=== PATIENT | female | born 1960 ===

== ENCOUNTER 2017-10-29 16:46 | Emergency (ER) | payer OTHER ==
[2017-10-29 16:57] VITALS: RESP 16; TEMP 98.1; O2SAT 98
[2017-10-29 18:15] LABS: BASO # 0.1 K/uL (0.0-0.2); BASO % 0.9 % (0.0-2.0); EOS # 0.1 K/uL (0.0-0.7); EOS % 1.8 % (0.0-4.0); HEMOGLOBIN 11.3 g/dL (12.0-16.0); LYMPH # 3.1 K/uL (1.0-4.3); LYMPH % 40.8 % (20.0-40.0); MEAN CELL VOLUME 83.6 fl (81.0-99.0); MEAN CORPUSCULAR HEMOGLOBIN 28.7 pg (27.0-31.0); MEAN CORPUSCULAR HGB CONC 34.4 g/dL (33.0-37.0); MEAN PLATELET VOLUME 8.4 fl (7.2-11.7); MONO # 0.5 K/uL (0.0-0.8); MONO % 6.5 % (0.0-10.0); NEUT # 3.8 K/uL (1.8-7.0); RBC 3.94 Mil/uL (3.80-5.20); RED CELL DISTRIBUTION WIDTH 13.9 % (11.5-14.5); WHITE BLOOD COUNT 7.7 K/uL (4.8-10.8)
[2017-10-29 18:25] LABS: ALB/GLOB RATIO 1.2 (1.0-2.1); ALBUMIN 3.8 g/dL (3.5-5.0); ALT/SGPT 27 U/L (9-52); AST/SGOT 24 U/L (14-36); BLOOD UREA NITROGEN 17 mg/dl (7-17); GFR AFRICAN-AMERICAN > 60; GFR NON-AFRICAN AMERICAN > 60
--- NOTE | 2017-10-29 18:34 | ED PDOC ---
HPI: General Adult Time Seen by Provider: 10/29/17 17:02 Chief Complaint (Nursing): Finger,Hand,&Wrist Chief Complaint (Provider): Finger, Hand, and Wrist History Per: Patient History/Exam Limitations: no limitations Onset/Duration Of Symptoms: Days (x2) Current Symptoms Are (Timing): Still Present Additional Complaint(s): 57 year old female presented to ED with complaints of bruising on the right 2nd MCP. Patient reports taking baby aspirin every day and denies taking other anticoagulants. Patient denies numbness, trauma, fever, injury, headache, neck pain, skin bite and decreased ROM. PCP: Dr. Matty Woodson Past Medical History Reviewed: Historical Data, Nursing Documentation, Vital Signs Vital Signs: Last Vital Signs Temp 98.1 F 10/29/17 16:54 Pulse 67 10/29/17 19:04 Resp 16 10/29/17 16:54 BP 135/76 10/29/17 19:04 Pulse Ox 98 10/29/17 18:50 - Medical History PMH: Asthma, HTN Denies: Chronic Kidney Disease - Surgical History Surgical History: No Surg Hx - Family History Family History: States: Unknown Family Hx - Home Medications Home Medications: Ambulatory Orders Medication Instructions Recorded Losartan [Cozaar] 1 tab PO DAILY 12/07/14 Aspirin [Ecotrin] 81 mg PO DAILY 10/22/16 - Allergies Allergies/Adverse Reactions: Allergies Allergy/AdvReac Type Severity Reaction Status Date / Time No Known Allergies Allergy Verified 10/29/17 16:54 Review of Systems ROS Statement: Except As Marked, All Systems Reviewed And Found Negative Constitutional: Negative for: Fever, Other (Trauma or other injury) Musculoskeletal: Negative for: Neck Pain Skin: Positive for: Bruising (Dorsal right 2nd MCP extending to 2nd proximal phalanx) Neurological: Negative for: Numbness, Headache Physical Exam - Reviewed Nursing Documentation Reviewed: Yes Vital Signs Reviewed: Yes - Physical Exam Comments: GENERAL APPEARANCE: Patient is awake, alert, oriented x 3, in no acute distress. SKIN: Warm, dry; (-) cyanosis. NECK: (-) tenderness, (-) stiffness, (-) lymphadenopathy, (-) JVD. CHEST AND RESPIRATORY: (-) rash, (-) chest wall tenderness. Lungs: (-) rales , (-) rhonchi, (-) wheezes, (-) rub; breath sounds equal bilaterally. HEART AND CARDIOVASCULAR: (-) irregularity; (-) murmur, (-) gallop, (-) rub. ABDOMEN AND GI: Soft; (-) distention, (-) tenderness, (-) palpable pulsatile mass. EXTREMITIES - RIGHT HAND: (-) Tenderness, (-) swelling, (+) ecchymosis of dorsal right 2nd MCP extending to right 2nd proximal phalanx, (-) deformity, (- ) tenderness, (-) edema, (-) distal neurovascular deficit. NEURO AND PSYCH: Mental status as above. Cranial nerves grossly intact; strength symmetric. - Laboratory Results Result Diagrams: 10/29/17 18:08 10/29/17 18:08 - ECG O2 Sat by Pulse Oximetry: 98 (RA) Pulse Ox Interpretation: Normal Medical Decision Making Medical Decision Makin:02 Initial Plan: * CMP * CBC (with differentials) * PTT * Prothrombin time Labs reviewed and are wnl, hgb, platelets, coags wnl. Lab results discussed with the patient in detail. Advised to ice and elevate her right hand and to monitor her symptoms. Advised to follow up with primary care physician in 1-2 days without fail. Return to the emergency room at any time for any new or worsening symptoms. Patient states she fully agrees with and understands discharge instructions. States that she agrees with the plan and disposition. Verbalized and repeated discharge instructions and plan. I have given the patient opportunity to ask any additional questions. Scribe Attestation: Documented by Chuy Woodard acting as a scribe for Susan Laboy PA-C MD Scribe Attestation: All medical record entries made by the Scribe were at my direction and personally dictated by me. I have reviewed the chart and agree that the record accurately reflects my personal performance of the history, physical exam, medical decision making, and the department course for this patient. I have also personally directed, reviewed, and agree with the discharge instructions and disposition. Disposition - Clinical Impression Clinical Impression: Ecchymosis - Patient ED Disposition Is Patient to be Admitted: No Counseled Patient/Family Regarding: Studies Performed, Diagnosis, Need For Followup - Disposition Referrals: Elsa Hoover MD [Medical Doctor] - Disposition: Routine/Home Disposition Time: 19:00 Condition: STABLE Additional Instructions: Thank you for letting us take care of you today. You were treated for ecchymosis to the hand. The emergency medical care you received today was directed at your acute symptoms. Ice and elevate the hand. Return to the Emergency Department if your symptoms worsen, do not improve, or if you have any other problems. Please contact your doctor in 2 days for re-evaluation and follow up / or call one of the physicians/clinics you have been referred to that are listed on the Patient Visit Information form that is included in your discharge packet. Bring any paperwork you were given at discharge with you along with any medications you are taking to your follow up visit. Our treatment cannot replace ongoing medical care by a primary care provider (PCP) outside of the emergency department. Thank you for allowing the [facility] team to be part of your care today. Instructions: Contusion (DC) Forms: [employer] (Estonian) Print Language: BURMESE - PA / CELL TOWER CLIMBER / Resident Statement / has reviewed & agrees with the documentation as recorded.
[2017-10-29 18:38] LABS: INR 1.1 (0.9-1.2); PARTIAL THROMBOPLASTIN TIME 34.6 Seconds (25.6-37.1); PROTHROMBIN TIME 11.9 Seconds (9.8-13.1)
[2017-10-29 19:04] VITALS: BP 135/76; PULSE 67
== END 2017-10-29 17:15 | disposition home or self-care (01) ==
LOC: H.ER 16:46
DX: R23.3 Spontaneous ecchymoses (principal); I10 Essential (primary) hypertension; J45.909 Unspecified asthma, uncomplicated; Z79.82 Long term (current) use of aspirin

== ENCOUNTER 2017-11-29 14:33 | Emergency (ER) | payer OTHER ==
[2017-11-29 14:45] VITALS: RESP 18; TEMP 98.3; O2SAT 98
--- NOTE | 2017-11-29 14:58 | ED PDOC ---
HPI: Wound Care - HPI Time Seen by Provider: 11/29/17 14:56 Chief Complaint (Nursing): Abnormal Skin Integrity Chief Complaint (Provider): lump to axilla History Per: Patient Exam Limitations: no limitations Onset/Duration Of Symptoms: Days (1 week) Current Symptoms Are (Timing): Still Present Additional Complaint(s): 57 y/o female with a history of HTN presents to the ED with an abscess to the right axillary region. Patient states she noticed it 1 week prior to ED arrival. She denies taking any pain medications, fever, or active drainage. Of note, NKDA. PMD: Dr. Matty Woodson Past Medical History Reviewed: Historical Data, Nursing Documentation, Vital Signs Vital Signs: Last Vital Signs Temp 98.3 F 11/29/17 14:43 Pulse 72 11/29/17 14:43 Resp 18 11/29/17 14:43 BP 165/83 H 11/29/17 14:43 Pulse Ox 98 11/29/17 14:43 - Medical History PMH: HTN - Surgical History Other surgeries: tubal ligation - Family History Family History: States: No Known Family Hx - Living Arrangements Living Arrangements: With Family - Social History Current smoker - smoking cessation education provided: No Ex-Smoker (has not smoked in the last 12 months): No Alcohol: None Drugs: Denies - Home Medications Home Medications: Ambulatory Orders Medication Instructions Recorded Losartan [Cozaar] 1 tab PO DAILY 12/07/14 Aspirin [Ecotrin] 81 mg PO DAILY 10/22/16 Amoxicillin/Clavulanate [Augmentin 1 tab PO BID #14 tab 11/29/17 875 MG-125 MG] Clindamycin [Cleocin] 300 mg PO TID #21 cap 11/29/17 Ibuprofen [Motrin Tab] 800 mg PO Q8 PRN #20 tab 11/29/17 - Allergies Allergies/Adverse Reactions: Allergies Allergy/AdvReac Type Severity Reaction Status Date / Time No Known Allergies Allergy Verified 11/29/17 14:42 Review of Systems ROS Statement: Except As Marked, All Systems Reviewed And Found Negative Constitutional: Negative for: Fever Skin: Positive for: Other (abscess to right axillary region, denies active drainage) Physical Exam - Reviewed Nursing Documentation Reviewed: Yes Vital Signs Reviewed: Yes - Physical Exam Appears: Positive for: Non-toxic, No Acute Distress Head Exam: Positive for: ATRAUMATIC, NORMAL INSPECTION, NORMOCEPHALIC Skin: Negative for: Normal Color (2 cm indurated abscess noted to right axillary region with no active drainage and no fluctuance, minimal tenderness to palpation, no central pointing, No diffuse cellulitis to axillary region), Rash Eye Exam: Positive for: Normal appearance Neurologic/Psych: Positive for: Alert, Oriented (x3) - ECG O2 Sat by Pulse Oximetry: 98 (RA) Pulse Ox Interpretation: Normal Medical Decision Making Medical Decision Making: Time: 14:43 Impression: 57 y/o female with right axillary abscess Initial Plan: * PO motrin dose in ED Indurated abscess noted to right axillary region with no fluctuance or central pointing. Incision and drainage not indicated at this time. Patient will be sent home with rx Augmentin, Clindamycin, and Motrin. Instructed to apply warm compress with epsom salts. Patient instructed to return in 2 days for wound check. Scribe Attestation: Documented by Dany Rogel acting as a scribe Bela Velasquez PA-C. MD Scribe Attestation: All medical record entries made by the Scribe were at my direction and personally dictated by me. I have reviewed the chart and agree that the record accurately reflects my personal performance of the history, physical exam, medical decision making, and the department course for this patient. I have also personally directed, reviewed, and agree with the discharge instructions and disposition. Disposition - Clinical Impression Clinical Impression: Abscess of right axilla - Patient ED Disposition Is Patient to be Admitted: No Counseled Patient/Family Regarding: Diagnosis, Need For Followup, Rx Given - Disposition Referrals: Matty Woodson MD [Staff Provider] - Disposition: Routine/Home Disposition Time: 15:51 Condition: STABLE Additional Instructions: Apply warm compresses with Epsom salts to affected area as often as possible. Take prescription meds as directed. Return to emergency room in 2-3 days for wound recheck. Prescriptions: Amoxicillin/Clavulanate [Augmentin 875 MG-125 MG] 1 tab PO BID #14 tab Clindamycin [Cleocin] 300 mg PO TID #21 cap Ibuprofen [Motrin Tab] 800 mg PO Q8 PRN #20 tab PRN Reason: Pain, Moderate (4-7) Instructions: Skin Abscess Forms: [facility] (Icelandic) Print Language: THAI
[2017-11-29 15:52] VITALS: BP 143/83; PULSE 98
== END 2017-11-29 15:55 | disposition home or self-care (01) ==
LOC: H.ER 14:33
DX: L02.411 Cutaneous abscess of right axilla (principal); I10 Essential (primary) hypertension; Z79.82 Long term (current) use of aspirin; Z87.891 Personal history of nicotine dependence

== ENCOUNTER 2017-12-03 15:22 | Emergency (ER) | payer OTHER ==
--- NOTE | 2017-12-03 16:03 | ED PDOC ---
HPI: Wound Care - HPI Time Seen by Provider: 12/03/17 15:52 Chief Complaint (Nursing): Abnormal Skin Integrity Chief Complaint (Provider): Abscess History Per: Patient Exam Limitations: no limitations Additional Complaint(s): 57 year old female presents to the emergency department for a wound check on an abscess located to the right axilla noted around 1 week ago. Patient was seen in this facility on 11/29/2017, diagnosed with a skin abscess, given a prescription for Augmentin 875 mg-125 mg and told to apply warm compresses with Epsom salts to affected area as often as possible and advised to come back to the emergency department 2-3 days for wound recheck. Patient states wound has not changed. Denies fever or chills. PMD: Dr. Matty Woodson MD Past Medical History Reviewed: Historical Data, Nursing Documentation, Vital Signs Vital Signs: Last Vital Signs Temp 98.2 F 12/03/17 15:37 Pulse 67 12/03/17 15:37 Resp 16 12/03/17 15:37 BP 156/73 H 12/03/17 15:37 Pulse Ox 100 12/03/17 15:37 - Medical History PMH: Asthma, HTN Denies: Chronic Kidney Disease - Surgical History Surgical History: No Surg Hx - Family History Family History: States: Unknown Family Hx - Social History Current smoker - smoking cessation education provided: No Alcohol: None Drugs: Denies - Immunization History Hx Tetanus Toxoid Vaccination: No - Home Medications Home Medications: Ambulatory Orders Medication Instructions Recorded Losartan [Cozaar] 1 tab PO DAILY 12/07/14 Aspirin [Ecotrin] 81 mg PO DAILY 10/22/16 Amoxicillin/Clavulanate [Augmentin 1 tab PO BID #14 tab 11/29/17 875 MG-125 MG] Clindamycin [Cleocin] 300 mg PO TID #21 cap 11/29/17 Ibuprofen [Motrin Tab] 800 mg PO Q8 PRN #20 tab 11/29/17 - Allergies Allergies/Adverse Reactions: Allergies Allergy/AdvReac Type Severity Reaction Status Date / Time No Known Allergies Allergy Verified 11/29/17 14:42 Review of Systems ROS Statement: Except As Marked, All Systems Reviewed And Found Negative (As per HPI, otherwise negative) Constitutional: Negative for: Fever, Chills Skin: Positive for: Other (Abscess noted to the right axilla. ) Physical Exam - Reviewed Nursing Documentation Reviewed: Yes - Physical Exam Appears: Positive for: Well, No Acute Distress Head Exam: Positive for: ATRAUMATIC, NORMAL INSPECTION, NORMOCEPHALIC Skin: Positive for: Normal Color, Warm, Dry Eye Exam: Positive for: Normal appearance, EOMI Respiratory: Negative for: Accessory Muscle Use, Respiratory Distress Extremity: Positive for: Normal ROM, Other (3 cm abscess that is fluctuant without surrounding erythema. No drainage noted. ). Negative for: Pedal Edema Neurologic/Psych: Positive for: Alert, Oriented (x3), Gait (Steady) - ECG O2 Sat by Pulse Oximetry: 100 (RA) Pulse Ox Interpretation: Normal Medical Decision Making Medical Decision Making: Time: 1557 Initial impression: Wound check Initial plan: Xylocaine 2% w/ epi 3 ml IJ Incision & Drainage --I&D can be found in procedure tab within chart. Time: 1645 --Patient advised to apply warm heating pad until she removes packing gauze and to then continue apply warm compresses. Scribe Attestation: Documented by Preeti Victoria, acting as a scribe for Maria Elena Simon PA-C. Provider Scribe Attestation: All medical record entries made by the Scribe were at my direction and personally dictated by me. I have reviewed the chart and agree that the record accurately reflects my personal performance of the history, physical exam, medical decision making, and the department course for this patient. I have also personally directed, reviewed, and agree with the discharge instructions and disposition. Disposition - Clinical Impression Clinical Impression: Sebaceous cyst - Disposition Disposition: Routine/Home Disposition Time: 16:59 Condition: STABLE Instructions: Abscess Incision and Drainage (DC) Forms: [facility] [employer] (Greenlandic) Print Language: URDU - Incision & Drainage Of Abscess Anesthesia: Lidocaine 1%, With Epi Prep Used: Sterile Water Procedure: Incised W/Scalpel Blade#: (11), Drained Pus (1 cc of thick white drainage), Packed W/Gauze
[2017-12-03] MEDS ORDERED: Lidocaine 1% Inj (20ml) ONE (16:18)
[2017-12-03] MEDS: Lidocaine 2% w Epi 1:100,000 Inj IJ STA (16:20)
[2017-12-03] MEDS ORDERED: Lidocaine 1% w Epi 1:100,000 Inj ONE (16:20)
[2017-12-03 17:00] VITALS: BP 142/81; PULSE 70; RESP 18; TEMP 98
[2017-12-09 13:31] VITALS: O2SAT 100
== END 2017-12-03 17:01 | disposition home or self-care (01) ==
LOC: H.ER 15:22
DX: L02.411 Cutaneous abscess of right axilla (principal); I10 Essential (primary) hypertension; J45.909 Unspecified asthma, uncomplicated; Z79.82 Long term (current) use of aspirin

== ENCOUNTER 2018-01-10 09:51 | Emergency (ER) | payer OTHER ==
[2018-01-10] MEDS ORDERED: Sodium Chloride 0.9% 1,000 ML IV STA (10:44)
--- NOTE | 2018-01-10 10:52 | ED PDOC ---
HPI: General Adult Time Seen by Provider: 01/10/18 10:33 Chief Complaint (Provider): Dizziness History Per: Patient History/Exam Limitations: no limitations Onset/Duration Of Symptoms: Days (x1) Current Symptoms Are (Timing): Still Present Additional Complaint(s): 57 year old male with history of HTN presents to the ED with dizziness onset last night associated nausea. Patient feels like "room is spinning" and states that vertigo is worse with head movement. He denies vomiting, headache, chest pain, palpitations, LOC, fall, other injuries, or any other medical complaints. PMD: Dr. Matty Woodson Past Medical History Reviewed: Historical Data, Nursing Documentation, Vital Signs Vital Signs: Last Vital Signs Temp 98.3 F 01/10/18 10:11 Pulse 63 01/10/18 10:11 Resp 20 01/10/18 10:11 BP 152/80 H 01/10/18 10:11 Pulse Ox 100 01/10/18 10:54 - Medical History PMH: Asthma, HTN Denies: Chronic Kidney Disease - Family History Family History: States: Unknown Family Hx - Immunization History Hx Tetanus Toxoid Vaccination: No - Home Medications Home Medications: Ambulatory Orders Medication Instructions Recorded Losartan [Cozaar] 1 tab PO DAILY 12/07/14 Aspirin [Ecotrin] 81 mg PO DAILY 10/22/16 Amoxicillin/Clavulanate [Augmentin 1 tab PO BID #14 tab 11/29/17 875 MG-125 MG] Clindamycin [Cleocin] 300 mg PO TID #21 cap 11/29/17 Ibuprofen [Motrin Tab] 800 mg PO Q8 PRN #20 tab 11/29/17 Meclizine [Meclizine*] 25 mg PO Q8 #15 tab 01/10/18 - Allergies Allergies/Adverse Reactions: Allergies Allergy/AdvReac Type Severity Reaction Status Date / Time No Known Allergies Allergy Verified 01/10/18 11:26 Review of Systems ROS Statement: Except As Marked, All Systems Reviewed And Found Negative Gastrointestinal: Positive for: Nausea Neurological: Positive for: Dizziness Physical Exam - Reviewed Nursing Documentation Reviewed: Yes Vital Signs Reviewed: Yes - Physical Exam Appears: Positive for: Non-toxic, No Acute Distress Head Exam: Positive for: NORMOCEPHALIC Skin: Positive for: Normal Color, Warm, Dry Eye Exam: Positive for: EOMI, Normal appearance, PERRL Neck: Positive for: Normal, Painless ROM, Supple Cardiovascular/Chest: Positive for: Regular Rate, Rhythm. Negative for: Murmur Respiratory: Positive for: Normal Breath Sounds. Negative for: Respiratory Distress Gastrointestinal/Abdominal: Positive for: Normal Exam, Soft. Negative for: Tenderness Extremity: Positive for: Normal ROM (upper and lower). Negative for: Deformity Neurologic/Psych: Positive for: Alert, Oriented (x3). Negative for: Motor/ Sensory Deficits - Laboratory Results Result Diagrams: 01/10/18 11:57 01/10/18 11:57 - ECG O2 Sat by Pulse Oximetry: 100 (RA) Medical Decision Making Medical Decision Making: Time: 10:48 Initial Plan: --EKG --CMP --CBC with differentials --Antivert 25 mg PO --NS Scribe Attestation: Documented by Norma Woodard, acting as a scribe for Charly Pa MD Provider Scribe Attestation: All medical record entries made by the Scribe were at my direction and personally dictated by me. I have reviewed the chart and agree that the record accurately reflects my personal performance of the history, physical exam, medical decision making, and the department course for this patient. I have also personally directed, reviewed, and agree with the discharge instructions and disposition. Disposition - Clinical Impression Clinical Impression: Vertigo - Patient ED Disposition Is Patient to be Admitted: No Counseled Patient/Family Regarding: Studies Performed, Diagnosis, Need For Followup, Rx Given - Disposition Referrals: [facility] [Outside] Disposition: Routine/Home Disposition Time: 13:14 Condition: FAIR Prescriptions: Meclizine [Meclizine*] 25 mg PO Q8 #15 tab Instructions: Vertigo (a Type of Dizziness) Print Language: SAO TOMEAN
[2018-01-10 12:03] LABS: BASO % 0.3 % (0.0-2.0); LYMPH # 1.1 K/uL (1.0-4.3); LYMPH % 13.3 % (20.0-40.0); MEAN CELL VOLUME 82.5 fl (81.0-99.0); MEAN CORPUSCULAR HEMOGLOBIN 28.8 pg (27.0-31.0); MEAN CORPUSCULAR HGB CONC 34.9 g/dL (33.0-37.0); MEAN PLATELET VOLUME 8.7 fl (7.2-11.7); MONO # 0.2 K/uL (0.0-0.8); MONO % 2.4 % (0.0-10.0); NEUT # 6.8 K/uL (1.8-7.0); NRBC % 0.1 % (0.0-0.0); RBC 4.52 Mil/uL (3.80-5.20); RED CELL DISTRIBUTION WIDTH 14.3 % (11.5-14.5)
[2018-01-10 12:20] LABS: ALB/GLOB RATIO 1.3 (1.0-2.1); ALBUMIN 4.8 g/dL (3.5-5.0); ALT/SGPT 26 U/L (9-52); AST/SGOT 33 U/L (14-36); BLOOD UREA NITROGEN 14 mg/dl (7-17); CALCIUM 9.8 mg/dL (8.4-10.2); GFR AFRICAN-AMERICAN > 60; GFR NON-AFRICAN AMERICAN > 60
[2018-01-10 13:48] VITALS: BP 128/78; PULSE 78; RESP 19; TEMP 97; O2SAT 98
--- NOTE | 2018-01-10 20:50 | CARD ---
APPROVED REPORT EKG Measurement Heart [id number] <Conclusion> Normal sinus rhythm Left ventricular hypertrophy Non-specific ST-T wave changes Abnormal ECG
== END 2018-01-10 13:48 | disposition home or self-care (01) ==
LOC: H.ER 09:51
DX: R42 Dizziness and giddiness (principal); I10 Essential (primary) hypertension; J45.909 Unspecified asthma, uncomplicated; Z79.82 Long term (current) use of aspirin
CPT/HCPCS: 80053; 85025; 93005; 99284; J7030

== ENCOUNTER 2018-02-07 15:31 | Emergency (ER) | payer SELFPAY ==
[2018-02-07 15:43] VITALS: RESP 18; TEMP 98.3
[2018-02-07] MEDS ORDERED: Lidocaine 5% Patch TD STA (15:54)
--- NOTE | 2018-02-07 16:09 | ED PDOC ---
HPI: General Adult Time Seen by Provider: 02/07/18 15:45 Chief Complaint (Nursing): Back Pain Chief Complaint (Provider): Hip Pain History Per: Patient, Tie Man ([id number]) History/Exam Limitations: no limitations Onset/Duration Of Symptoms: Days (x5) Current Symptoms Are (Timing): Still Present Additional Complaint(s): 57 year old female with a history of htn and asthma presents to the ED with atraumatic, nonradiating left hip pain onset 5 days. Patient reports pain is worse with ambulation. She denies dysuria, hematuria, trauma, numbness, tingling , weakness or any other medical complaints. PMD: Dr. Woodson Past Medical History Reviewed: Historical Data, Nursing Documentation, Vital Signs Vital Signs: Last Vital Signs Temp 98.3 F 02/07/18 15:41 Pulse 73 02/07/18 15:41 Resp 18 02/07/18 15:41 BP 153/93 H 02/07/18 15:41 Pulse Ox 100 02/07/18 17:08 - Medical History PMH: Asthma, HTN Denies: Chronic Kidney Disease - Surgical History Surgical History: No Surg Hx - Family History Family History: States: Unknown Family Hx - Immunization History Hx Tetanus Toxoid Vaccination: No - Home Medications Home Medications: Ambulatory Orders Medication Instructions Recorded Losartan [Cozaar] 1 tab PO DAILY 12/07/14 Aspirin [Ecotrin] 81 mg PO DAILY 10/22/16 Amoxicillin/Clavulanate [Augmentin 1 tab PO BID #14 tab 11/29/17 875 MG-125 MG] Clindamycin [Cleocin] 300 mg PO TID #21 cap 11/29/17 Ibuprofen [Motrin Tab] 800 mg PO Q8 PRN #20 tab 11/29/17 Meclizine [Meclizine*] 25 mg PO Q8 #15 tab 01/10/18 Cyclobenzaprine [Cyclobenzaprine 10 mg PO Q8 PRN #10 tab 02/07/18 HCl] Naproxen [Naprosyn] 500 mg PO BID PRN #30 tab 02/07/18 - Allergies Allergies/Adverse Reactions: Allergies Allergy/AdvReac Type Severity Reaction Status Date / Time No Known Allergies Allergy Verified 02/07/18 15:41 Review of Systems ROS Statement: Except As Marked, All Systems Reviewed And Found Negative Musculoskeletal: Positive for: Other (left hip pain ) Physical Exam - Reviewed Nursing Documentation Reviewed: Yes Vital Signs Reviewed: Yes - Physical Exam Appears: Positive for: In Acute Distress (miniml painful) Skin: Positive for: Normal Color, Warm. Negative for: Rash Eye Exam: Positive for: EOMI, Normal appearance, PERRL Cardiovascular/Chest: Positive for: Regular Rate, Rhythm. Negative for: Murmur Respiratory: Positive for: Normal Breath Sounds. Negative for: Accessory Muscle Use, Respiratory Distress Gastrointestinal/Abdominal: Negative for: Tenderness Pelvic Exam: Positive for: Other (no pelvic tenderness) Back: Positive for: Other (Left paralumbar and left lateral hip tenderness). Negative for: L CVA Tenderness, R CVA Tenderness, Vertebral Tenderness Neurologic/Psych: Positive for: Alert, Oriented (x3) - ECG O2 Sat by Pulse Oximetry: 100 (RA) Pulse Ox Interpretation: Normal Medical Decision Making Medical Decision Making: Time: 15:54 Initial Plan: --Flexeril 10 mg --Lidoderm 1 ea --Toradol 30 mg IM --Hip XR --Urinalysis Time: 16:12 Hip XR FINDINGS: BONES: Normal. No fracture. JOINTS: Mild and symmetrical degenerative change. SOFT TISSUES: Normal. OTHER FINDINGS: None. IMPRESSION: No acute findings related to/accounting for the clinical presentation. Scribe Attestation: Documented by Norma Woodard, acting as a scribe for Santos Maradiaga PA-C. ~ Provider Scribe Attestation: All medical record entries made by the Scribe were at my direction and personally dictated by me. I have reviewed the chart and agree that the record accurately reflects my personal performance of the history, physical exam, medical decision making, and the department course for this patient. I have also personally directed, reviewed, and agree with the discharge instructions and disposition. Disposition - Clinical Impression Clinical Impression: Hip pain - Patient ED Disposition Is Patient to be Admitted: No - Disposition Referrals: [facility] [Outside] Disposition: Routine/Home Disposition Time: 17:10 Condition: IMPROVED Additional Instructions: JOSÉ MIGUEL GUTIERREZ, thank you for letting us take care of you today. Your provider was Tyrell Lundberg III, DO and you were treated for BACK PAIN. The emergency medical care you received today was directed at your acute symptoms. If you were prescribed any medication, please fill it and take as directed. It may take several days for your symptoms to resolve. Return to the Emergency Department if your symptoms worsen, do not improve, or if you have any other problems. Please contact your doctor or call one of the physicians/clinics you have been referred to that are listed on the Patient Visit Information form that is included in your discharge packet. Bring any paperwork you were given at discharge with you along with any medications you are taking to your follow up visit. Our treatment cannot replace ongoing medical care by a primary care provider outside of the emergency department. Thank you for allowing the [facility] team to be part of your care today. If you had an X-Ray or CT scan: A Radiologist will review the ED reading if any change in treatment is needed we will contact you. If you had a blood, urine, or wound culture: It will take several days for the results, if any change in treatment is needed we will contact you. If you had an STI test: It will take 48 hours for the results. Please call after 1 week if you have not heard back. Prescriptions: Cyclobenzaprine [Cyclobenzaprine HCl] 10 mg PO Q8 PRN #10 tab PRN Reason: Muscle Spasm Naproxen [Naprosyn] 500 mg PO BID PRN #30 tab PRN Reason: Pain Instructions: Hip Pain (DC) Forms: [employer] (Kenyan) Print Language: GAMBIAN
[2018-02-07] MEDS ORDERED: Lidocaine 5% Patch TD ONE (16:18)
--- NOTE | 2018-02-07 16:28 | RAD ---
PROCEDURE: Left Hip X-ray Radiographs. HISTORY: Pain. No history of recent/ related trauma provided COMPARISON: None. FINDINGS: BONES: Normal. No fracture. JOINTS: Mild and symmetrical degenerative change. SOFT TISSUES: Normal. OTHER FINDINGS: None. IMPRESSION: No acute findings related to/accounting for the clinical presentation.
[2018-02-07 17:01] LABS: SQUAMOUS EPITHIAL 1 /hpf (0-5); URINE BILIRUBIN NEGATIVE (NEGATIVE); URINE BLOOD NEGATIVE (NEGATIVE); URINE CLARITY SLIGHTY-CLOUDY (Clear); URINE COLOR YELLOW (YELLOW); URINE GLUCOSE (UA) NEG (Normal); URINE LEUKOCYTE ESTERASE NEG Leu/uL (Negative); URINE PROTEIN NEGATIVE (NEGATIVE); URINE UROBILINOGEN 0.2-1.0 mg/dL (0.2-1.0)
[2018-02-07 18:29] VITALS: BP 140/78; PULSE 70; O2SAT 99
== END 2018-02-07 18:29 | disposition home or self-care (01) ==
LOC: H.ER 15:31
DX: M25.552 Pain in left hip (principal); I10 Essential (primary) hypertension
CPT/HCPCS: 73502; 81003; 96372; 99283; J1885

== ENCOUNTER 2018-05-02 16:24 | Emergency (ER) | payer SELFPAY ==
[2018-05-02] MEDS ORDERED: Naproxen 500 MG TAB PO STA (18:17)
--- NOTE | 2018-05-02 18:24 | ED PDOC ---
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 Patient reports, 2 weeks ago, she injured her right 5th toe after stubbing it on an object which became swollen and bruised. Symptoms resolved shortly afterwards, however, the toe became swollen and painful again since yesterday. Patient took Tylenol last night for symptoms, but none today; patient notes she never was evaluated at the initial time of the injury. Denies ankle pain or calf pain. Patient indicates that approximately 10 years ago patient had a "callus" removed via surgery from both of the 5th toes. PMD: Matty Frias Past Medical History Reviewed: Historical Data, Nursing Documentation, Vital Signs Vital Signs: Last Vital Signs Temp 98.5 F 05/02/18 16:36 Pulse 72 05/02/18 16:36 Resp 19 05/02/18 16:36 BP 148/87 05/02/18 16:36 Pulse Ox 98 05/02/18 16:36 - Medical History PMH: Asthma, HTN - Surgical History Other surgeries: Callus removal from both 5th toes - Family History Family History: States: Unknown Family Hx - Home Medications Home Medications: Ambulatory Orders Medication Instructions Recorded RX: Losartan [Cozaar] 1 tab PO DAILY 12/07/14 Aspirin [Ecotrin] 81 mg PO DAILY 10/22/16 Amoxicillin/Clavulanate [Augmentin 1 tab PO BID #14 tab 11/29/17 875 MG-125 MG] Ibuprofen [Motrin Tab] 800 mg PO Q8 PRN #20 tab 11/29/17 RX: Clindamycin [Cleocin] 300 mg PO TID #21 cap 11/29/17 RX: Meclizine [Meclizine*] 25 mg PO Q8 #15 tab 01/10/18 Cyclobenzaprine [Cyclobenzaprine 10 mg PO Q8 PRN #10 tab 02/07/18 HCl] RX: Naproxen [Naprosyn] 500 mg PO BID PRN #30 tab 02/07/18 Acetaminophen [Acetaminophen 8 650 mg PO Q8 PRN #21 tablet.er 05/02/18 Hour] Meloxicam [Mobic] 15 mg PO DAILY #10 tab 05/02/18 - Allergies Allergies/Adverse Reactions: Allergies Allergy/AdvReac Type Severity Reaction Status Date / Time No Known Allergies Allergy Verified 02/07/18 15:41 Review of Systems ROS Statement: Except As Marked, All Systems Reviewed And Found Negative Musculoskeletal: Positive for: Other (Left 5th toe pain and swelling) Physical Exam - Reviewed Nursing Documentation Reviewed: Yes Vital Signs Reviewed: Yes - Physical Exam Comments: GENERAL APPEARANCE: Patient is awake, alert, oriented x 3, in no acute distress. Resting comfortably. SKIN: Warm, dry; (-) cyanosis. NECK: Supple, FROM LOWER EXTREMITY: Diffuse tenderness of the left fifth toe and mild edema dorsum to the left 5th toe. Remainder of toes nontender with full ROM. Sensation and capillary refill intact. (-) ecchymosis, (-) erythema, (-) warmth, (-) calf tenderness. Remainder of lower extremity nontender with FROM. CHEST AND RESPIRATORY: (-)wheezing (-) rales, (-) rhonchi; breath sounds equal bilaterally. Respirations even and nonlabored. HEART AND CARDIOVASCULAR: (-) irregularity EXTREMITIES: (-) deformity, (-) edema. NEURO AND PSYCH: Mental status as above; (-) focal findings. Limping in the ED. (-) facial asymmetry (-) aphasia - ECG O2 Sat by Pulse Oximetry: 98 (RA) Pulse Ox Interpretation: Normal Medical Decision Making Medical Decision Making: Initial Impression: Acute toe pain; contusion vs fracture Initial Plan: --Naproxen 500mg PO --Right foot X-ray --Consult to podiatry placed. 1840 Case discussed with podiatry resident, Dr Lowe, who is agreeable to evaluation at bedside. 1854 Podiatry at bedside. Foot XR: (-) fracture (-) dislocation 1950 Surgical shoe applied by podiatry. Patient supplied with crutches and instructed on crutch walking. RICE encouraged. Patient to follow up with podiatry clinic in two weeks with Dr Caro. On exam, patient remains AAOx3, in no acute distress. Lungs clear to auscultation, cardiac RRR, repeat neuro exam shows no focal findings. Vitals stable. Lab/Diagnostic results d/w the patient in great detail. Diagnosis of acute toe pain and swelling d/w the patient. Based on history, exam and diagnostic results, plan will be for outpatient follow up with podiatry. Patient instructed to follow-up with pmd / referral provided / the clinic in 1- 2 days without fail. Advised to take medication as prescribed. Return to the emergency room at any time for any new or worsening symptoms. Patient states she fully agrees with and understands discharge instructions. States that she agrees with the plan and disposition. Verbalized and repeated discharge instructions and plan. I have given the patient opportunity to ask any additional questions. Scribe Attestation: Documented by Chuy Woodard acting as a scribe for Flaquita LUZ Provider Scribe Attestation: All medical record entries made by the Scribe were at my direction and personally dictated by me. I have reviewed the chart and agree that the record accurately reflects my personal performance of the history, physical exam, medical decision making, and the department course for this patient. I have also personally directed, reviewed, and agree with the discharge instructions and disposition. Disposition - Clinical Impression Clinical Impression: Toe pain, Toe swelling - Patient ED Disposition Is Patient to be Admitted: No Counseled Patient/Family Regarding: Studies Performed, Diagnosis, Need For Followup, Rx Given - Disposition Referrals: Podiatry Clinic [Outside] Disposition: Routine/Home Disposition Time: 19:50 Condition: IMPROVED Additional Instructions: Meena un seguimiento con la clnica de podologa en [address] Venancio rodríguez. La atencin mdica de emergencia que recibi hoy se dirigi a lucía sntomas agudos. Si le recetaron algn medicamento, llnelo y tmelo segn las indicaciones. Los sntomas pueden tardar varios west en resolverse. Regrese al Departamento de Emergencias si lucía sntomas empeoran, no mejoran o si tiene otros problemas. Comunquese con renteria mdico dentro de 2 west para nicko nueva evaluacin y meena un seguimiento o llame a sarmad de los mdicos / clnicas a los que avelar sido referido y que figuran en el formulario de Informacin de visita al paciente que se incluye en renteria paquete de mark. Lleve con usted a renteria consulta de seguimiento toda la documentacin que recibi del mark junto con los medicamentos que est tomando. Nuestro tratamiento no puede reemplazar la atencin mdica continua por parte de un proveedor de atencin primaria (PCP) fuera del departamento de emergencias. Prescriptions: Acetaminophen [Acetaminophen 8 Hour] 650 mg PO Q8 PRN #21 tablet.er PRN Reason: Pain, Moderate (4-7) Meloxicam [Mobic] 15 mg PO DAILY #10 tab Instructions: Muscle and Bone Pain (DC), Toe Injury Forms: [facility] (Djiboutian) Print Language: MACEDONIAN - POA Present On Arrival: None
[2018-05-02] MEDS ORDERED: Naproxen 500 MG TAB PO ONE (18:39)
--- NOTE | 2018-05-02 18:47 | RAD ---
Date of service: 05/02/2018 PROCEDURE: Right Foot Radiographs. HISTORY: 5th toe injury COMPARISON: None. FINDINGS: BONES: No definite fracture. JOINTS: Normal. SOFT TISSUES: Soft tissue swelling. OTHER FINDINGS: None. IMPRESSION: No definite fracture or dislocation.
--- NOTE | 2018-05-02 19:26 | CP.PCM.CON ---
History of Present Illness - History of Present Illness History of Present Illness: 57 y/o female patient was seen and evaluated in the ED due to complaints of pain to her Right 5th digit. Patient has PMHx of HTN. Patient states she stubbed her 5th digit 2 weeks ago. Patient reports it was bruised and swollen at the time. Patient states she applied ice to the area and took Tylenol for pain relief. Patient reports she has been ambulating on the right foot, and states pain is worse when ambulating. Patient denies any bleeding or drainage from the right 5th digit. Patient's pain is 8/10 on the VAS. Patient denies any fever, nausea, vomiting, shortness of breath, chest pain or posterior calf pain Review of Systems - Review of Systems All systems: reviewed and no additional remarkable complaints except Review of Systems: As per HPI Past Patient History - Past Medical History & Family History Past Medical History?: Yes - Past Social History Smoking Status: Never Smoked - CARDIAC Hx Hypertension: Yes - PULMONARY Hx Asthma: Yes - NEUROLOGICAL Hx Neurological Disorder: No - HEENT Hx HEENT Problems: No - RENAL Hx Chronic Kidney Disease: No - ENDOCRINE/METABOLIC Hx Endocrine Disorders: No - HEMATOLOGICAL/ONCOLOGICAL Hx Blood Disorders: No - INTEGUMENTARY Hx Dermatological Problems: No - MUSCULOSKELETAL/RHEUMATOLOGICAL Hx Musculoskeletal Disorders: No - GASTROINTESTINAL Hx Gastrointestinal Disorders: No - GENITOURINARY/GYNECOLOGICAL Hx Genitourinary Disorders: No - PSYCHIATRIC Hx Psychophysiologic Disorder: No Hx Emotional Abuse: No Hx Physical Abuse: No Hx Substance Use: No - SURGICAL HISTORY Hx Surgeries: Yes Hx Tubal Ligation: Yes Other/Comment: OVARIAN CYSTECTOMY - ANESTHESIA Hx Anesthesia: Yes Hx Anesthesia Reactions: No Hx Malignant Hyperthermia: No Meds Allergies/Adverse Reactions: Allergies Allergy/AdvReac Type Severity Reaction Status Date / Time No Known Allergies Allergy Verified 02/07/18 15:41 Physical Exam - Constitutional Appears: Well, Non-toxic, No Acute Distress - Head Exam Head Exam: ATRAUMATIC, NORMOCEPHALIC - Extremities Exam Extremities exam: Positive for: full ROM, tenderness. Negative for: pedal edema Additional comments: Bilateral Lower Extremity Exam VASC: DP and PT 2/4 bilaterally, CFT less than 3 seconds X 10, TG within normal limits, no pedal edema appreciated NEURO: epicritic and protective sensation intact DERM: minimal erythema to the right 5th digit, no open lesions, no ecchymosis, no clinical signs of infection ORTHO: pain on palpation to the right 5th digit, pain with range of motion of the right 5th MTPJ, pain submet 5, MSK 5/5, all other ranges of motion within normal limits - Neurological Exam Neurological exam: Alert, Oriented x3 - Psychiatric Exam Psychiatric exam: Normal Affect, Normal Mood Results - Vital Signs Recent Vital Signs: Last Vital Signs Temp 98.5 F 05/02/18 16:36 Pulse 72 05/02/18 16:36 Resp 19 05/02/18 16:36 BP 148/87 05/02/18 16:36 Pulse Ox 98 05/02/18 18:57 Assessment & Plan - Assessment and Plan (Free Text) Assessment: 57 y/o female seen and evaluated for pain to the right 5th digit Plan: Patient seen and evaluated at bedside Plan discussed with attending Dr. Caro Right Foot X-ray: soft tissue swelling at the 5th, no acute fracture or dislocation noted of the 5th digit Patient 5th digit splinted against the 4th digit via [place], CFT checked to less than 3 seconds Patient provided with a surgical shoe and advised to stay NWB or to partial bear weight to the right heel Instructed patient on proper crutch use Patient demonstrated verbal understanding Patient to return to ER if pain worsens and educated on clinical signs of infection Patient to follow up in Podiatry Clinic in 2 weeks on Wednesday Thank you for the podiatry consult - Date & Time Date: 05/02/18 Time: 19:32
[2018-05-02 19:58] VITALS: BP 139/80; PULSE 87; RESP 15; TEMP 98.1
[2018-05-02 20:00] VITALS: O2SAT 98
== END 2018-05-02 19:58 | disposition home or self-care (01) ==
LOC: H.ER 16:24
DX: M79.674 Pain in right toe(s) (principal); I10 Essential (primary) hypertension; J45.909 Unspecified asthma, uncomplicated; Z79.82 Long term (current) use of aspirin; Z98.51 Tubal ligation status

== ENCOUNTER 2018-09-27 14:57 | Observation (INO) | payer SELFPAY ==
--- NOTE | 2018-09-27 15:33 | CT ---
Date of service: 09/27/2018 PROCEDURE: CT HEAD WITHOUT CONTRAST. HISTORY: code stroke COMPARISON: 01/22/2018 TECHNIQUE: Axial computed tomography images were obtained through the head/brain without intravenous contrast. Radiation dose: Total exam DLP = 1145.1 mGy-cm. This CT exam was performed using one or more of the following dose reduction techniques: Automated exposure control, adjustment of the mA and/or kV according to patient size, and/or use of iterative reconstruction technique. FINDINGS: HEMORRHAGE: No intracranial hemorrhage. BRAIN: No mass effect or edema. No atrophy or chronic microvascular ischemic changes. VENTRICLES: Unremarkable. No hydrocephalus. CALVARIUM: Unremarkable. PARANASAL SINUSES: Unremarkable as visualized. No significant inflammatory changes. MASTOID AIR CELLS: Unremarkable as visualized. No inflammatory changes. OTHER FINDINGS: None. IMPRESSION: No intracranial hemorrhage. No evidence of acute infarct. No interval change. The findings in this examination were discussed by telephone with Dr. Lundberg at 3:29 p.m. on 09/27/2018.
[2018-09-27 15:46] LABS: INR 1.1; PROTHROMBIN TIME 12.1 Seconds (9.8-13.1)
[2018-09-27 15:49] LABS: PARTIAL THROMBOPLASTIN TIME 33.9 Seconds (25.6-37.1)
--- NOTE | 2018-09-27 15:49 | RAD ---
Date of service: 09/27/2018 HISTORY: Code Stroke COMPARISON: 12/07/2014 TECHNIQUE: 1 view obtained. FINDINGS: LUNGS: No active pulmonary disease. PLEURA: No significant pleural effusion identified, no pneumothorax apparent. CARDIOVASCULAR: No aortic atherosclerotic calcification present. Normal cardiac size. No pulmonary vascular congestion. OSSEOUS STRUCTURES: No significant abnormalities. VISUALIZED UPPER ABDOMEN: Normal. OTHER FINDINGS: None. IMPRESSION: No active disease.
[2018-09-27 15:52] LABS: BASO # 0.1 K/uL (0.0-0.2); BASO % 0.7 % (0.0-2.0); EOS # 0.1 K/uL (0.0-0.7); EOS % 1.3 % (0.0-4.0); HEMOGLOBIN 12.5 g/dL (12.0-16.0); LYMPH # 3.8 K/uL (1.0-4.3); LYMPH % 51.5 % (20.0-40.0); MEAN CELL VOLUME 82.1 fl (81.0-99.0); MEAN CORPUSCULAR HEMOGLOBIN 28.1 pg (27.0-31.0); MEAN CORPUSCULAR HGB CONC 34.2 g/dL (33.0-37.0); MEAN PLATELET VOLUME 9.1 fl (7.2-11.7); MONO # 0.9 K/uL (0.0-0.8); MONO % 12.6 % (0.0-10.0); NEUT # 2.5 K/uL (1.8-7.0); NEUT % 33.9 % (50.0-75.0); NRBC % 0.3 % (0.0-0.0); RBC 4.44 Mil/uL (3.80-5.20); RED CELL DISTRIBUTION WIDTH 14.3 % (11.5-14.5); WHITE BLOOD COUNT 7.4 K/uL (4.8-10.8)
--- NOTE | 2018-09-27 16:07 | ED PDOC ---
HPI:STROKE - Time Time: 15:14 - Historian Historian: Patient - Chief Complaint Chief Complaint: Weakness - Onset Onset: Hours (18) - Context Context: Home - Location Locate left: Upper extremity - TPA Positive for Contraindication: Yes Reason tPA is not being Administered: symptoms ongoing >4 hours, NIHSS <4 - Notes: Notes:: 58yo female with history of hypertension, asthma, comes to ER reporting left sided numbness and slight weakness since 9pm last night. She reports she woke up this morning with persistent weakness and numbness, prompting the ER visit. Patient denies any associated fall, syncope, vision changes, headache, or speech changes. PMD: Dr. Woodson NIHSS Stroke Scale - Date/Time Evaluation Performed Date Performed: 09/27/18 Time Performed: 15:20 When Was NIHSS Performed: Code Stroke - How Severe is the Stroke Level of Consciousness: 0=Alert LOC to Questions: 0=Both comments correct LOC to commands: 0=Obeys both correctly Best Gaze: 0=Normal Visual: 0=No visual loss Facial: 0=Normal Motor Arm - Left: 1=Drift noted before 10 sec Motor Arm - Right: 0=No drift Motor Leg - Left: 0=No drift Motor Leg - Right: 0=No drift Limb Ataxia: 0=Absent Sensory: 1=Mild to moderate loss Best Language: 0=No aphasia Dysarthia: 0=Normal articulation Extinction & Inattention (Neglect): 0=Normal, no object Score: 2 rTPA Inclusion/Exclusion - Refusal of Treatment Patient Refused Treatment: Yes - Inclusion Criteria for Altepase All of the below criteria for inclusion were reviewed: Yes Patient is 18 years or Older: Yes The Clinical Diagnosis of Ischemic Stroke That is Causing a Potentially Disabling Neurological Deficit: Yes Time of Onset is Well Established to be Less Than 270 Minute Before Treatment Would Begin: Yes Risk/Benefit Discussed With Patient/Family Member Present: Yes - Exclusion Criteria for Altepase Current Intracranial Hemorrhage: No Past Medical History Reviewed: Historical Data, Nursing Documentation, Vital Signs Vital Signs: Last Vital Signs Temp 97.6 F 09/27/18 15:23 Pulse 83 09/27/18 15:23 Resp 20 09/27/18 15:23 BP 149/86 09/27/18 15:23 Pulse Ox 98 09/27/18 15:23 - Medical History PMH: Asthma, HTN Denies: Chronic Kidney Disease - Surgical History Surgical History: No Surg Hx - Family History Family History: States: No Known Family Hx, Unknown Family Hx - Social History Current smoker - smoking cessation education provided: No Alcohol: None Drugs: Denies - Immunization History Hx Tetanus Toxoid Vaccination: No - Home Medications Home Medications: Ambulatory Orders Medication Instructions Recorded Losartan [Cozaar] 50 mg PO DAILY 12/07/14 Aspirin [Ecotrin] 81 mg PO DAILY 10/22/16 Cholecalciferol [Vitamin D 1000 IU] 1 tab PO DAILY 09/27/18 Atorvastatin [Lipitor] 40 mg PO DAILY 30 Days #30 tab 09/29/18 Clopidogrel [Plavix] 75 mg PO DAILY 30 Days #30 tab 09/29/18 - Allergies Allergies/Adverse Reactions: Allergies Allergy/AdvReac Type Severity Reaction Status Date / Time No Known Allergies Allergy Verified 02/07/18 15:41 Review of Systems ROS Statement: Except As Marked, All Systems Reviewed And Found Negative Eyes: Negative for: Vision Change Neurological: Positive for: Weakness, Numbness (left sided). Negative for: [place] ge in Speech, Headache, Other (syncope) Physical Exam - Reviewed Nursing Documentation Reviewed: Yes Vital Signs Reviewed: Yes - Physical Exam Appears: Positive for: Non-toxic Head Exam: Positive for: ATRAUMATIC, NORMAL INSPECTION, NORMOCEPHALIC Skin: Positive for: Normal Color Eye Exam: Positive for: EOMI, PERRL Neck: Positive for: Normal, Supple Cardiovascular/Chest: Positive for: Regular Rate, Rhythm. Negative for: Tachycardia Respiratory: Positive for: Normal Breath Sounds. Negative for: Respiratory Distress Gastrointestinal/Abdominal: Positive for: Normal Exam, Soft Back: Positive for: Normal Inspection Extremity: Positive for: Normal ROM (FROM of bilateral lower extrmeities). 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 right), Facial Droop - Laboratory Results Result Diagrams: 09/28/18 04:45 09/28/18 04:45 Lab Results: PT 12.1 Seconds (9.8-13.1) 09/27/18 15:30 INR 1.1 09/27/18 15:30 APTT 33.9 Seconds (25.6-37.1) 09/27/18 15:30 - ECG ECG: Positive for: Interpreted By Me, Viewed By Me ECG Rhythm: Positive for: Normal QRS, Normal ST Segment, Sinus Rhythm, Nonspecific Changes Rate: 71 O2 Sat by Pulse Oximetry: 98 (RA) Pulse Ox Interpretation: Normal Medical Decision Making Medical Decision Making: Code stroke initiated as symptoms onset < [address] head obtained -- Labs -- IV fluids -- ASA 325mg PO Discussed CT head w/ Dr. Hills who states no bleed or infarct. Patient to be admitted to Dr. Woodson for cerebral ischemia workup. Scribe Attestation: Documented by Vanna Lopez, acting as a scribe for Tyrell Lundberg DO Provider Scribe Attestation: All medical record entries made by the Scribe were at my direction and personally dictated by me. I have reviewed the chart and agree that the record accurately reflects my personal performance of the history, physical exam, medical decision making, and the department course for this patient. I have also personally directed, reviewed, and agree with the discharge instructions and disposition. Disposition - Clinical Impression Clinical Impression: CVA (cerebral vascular accident) - Patient ED Disposition Is Patient to be Admitted: Yes Counseled Patient/Family Regarding: Studies Performed, Diagnosis - Disposition Disposition Time: 15:48 Condition: FAIR - Pt Status Changed To: Hospital Disposition Of: Observation
[2018-09-27 16:24] LABS: ALB/GLOB RATIO 1.2 (1.0-2.1); ALBUMIN 4.7 g/dL (3.5-5.0); ALT/SGPT 27 U/L (9-52); AST/SGOT 27 U/L (14-36); BLOOD UREA NITROGEN 13 mg/dl (7-17); CALCIUM 9.8 mg/dL (8.4-10.2); GFR NON-AFRICAN AMERICAN > 60; HDL CHOLESTEROL 49 MG/DL (30-70)
--- NOTE | 2018-09-27 16:28 | CP.PCM.HP ---
History of Present Illness - History of Present Illness History of Present Illness: 58 yo female pt with PMH of HTN present today to the ED c/o left side numbness since last night. Patient reports having L sided neck numbness since yesterday 8 pm that radiated to L arm and L leg, she denies gait disturbance. This morning she noted associated L arm weakness and decided come to the ED. Patient denies any previous episode in the past. She reports adherence with BP medication. Otherwise she denies headaches, blurry vision, slurred speech, dysphagia, weakness, dizziness, CP or sob. Positive family h/o stroke on her sister. She does not have any other complaints. PMD: Dr Woodson. PMH: HTN Meds: reviewed PSH: BTL and ovarian cyst FMH: sister from stroke 7 yr ago NKDA SH: denies tobacco, etoh or ilicit drugs use ED course: code stroke ASA 325mg once IV fluids Head CT: negative for acute intracranial changes CXR: negative EKG: NSR, no acute changes Present on Admission - Present on Admission Any Indicators Present on Admission: No Review of Systems - Review of Systems All systems: reviewed and no additional remarkable complaints except (HPI) Past Patient History - Infectious Disease Hx of Infectious Diseases: None - Past Medical History & Family History Past Medical History?: Yes - Past Social History Alcohol: None Drugs: Denies - CARDIAC Hx Hypertension: Yes - PULMONARY Hx Asthma: Yes - NEUROLOGICAL Hx Neurological Disorder: No - HEENT Hx HEENT Problems: No - RENAL Hx Chronic Kidney Disease: No - ENDOCRINE/METABOLIC Hx Endocrine Disorders: No - HEMATOLOGICAL/ONCOLOGICAL Hx Blood Disorders: No - INTEGUMENTARY Hx Dermatological Problems: No - MUSCULOSKELETAL/RHEUMATOLOGICAL Hx Musculoskeletal Disorders: No - GASTROINTESTINAL Hx Gastrointestinal Disorders: No - GENITOURINARY/GYNECOLOGICAL Hx Genitourinary Disorders: No - PSYCHIATRIC Hx Psychophysiologic Disorder: No Hx Emotional Abuse: No Hx Physical Abuse: No Hx Substance Use: No - SURGICAL HISTORY Hx Surgeries: Yes Hx Tubal Ligation: Yes Other/Comment: OVARIAN CYSTECTOMY - ANESTHESIA Hx Anesthesia: Yes Hx Anesthesia Reactions: No Hx Malignant Hyperthermia: No Meds Allergies/Adverse Reactions: Allergies Allergy/AdvReac Type Severity Reaction Status Date / Time No Known Allergies Allergy Verified 02/07/18 15:41 Physical Exam - Constitutional Appears: No Acute Distress - Head Exam Head Exam: NORMAL INSPECTION - Eye Exam Eye Exam: EOMI, PERRL - Respiratory Exam Respiratory Exam: Clear to Auscultation Bilateral, NORMAL BREATHING PATTERN - Cardiovascular Exam Cardiovascular Exam: REGULAR RHYTHM, +S1, +S2. absent: Tachycardia, Systolic Murmur - GI/Abdominal Exam GI & Abdominal Exam: Normal Bowel Sounds, Soft. absent: Distended, Tenderness - Extremities Exam Extremities exam: Negative for: calf tenderness, pedal edema - Neurological Exam Neurological exam: Alert, Oriented x3 - Expanded Neurological Exam Expanded Speech: Fluid Speech Cranial nerves: Facial Sensation: Normal Upper motor neuron: Pronator Drift: Normal Sensory exam: Lower Extremity Light Touch: Normal, Lower Extremity Pin Prick: Normal, Lower Extremity Temperature: Normal, Upper Extremity Light Touch: Normal, Upper Extremity Pin Prick: Normal, Upper Extremity Temperature: Normal Neuro motor strength exam: Left Upper Extremity: 4, Right Upper Extremity: 5, Le ft Lower Extremity: 5, Right Lower Extremity: 5 - Psychiatric Exam Psychiatric exam: Normal Affect - Skin Skin Exam: Dry, Warm Results - Vital Signs Recent Vital Signs: Last Vital Signs Temp 97.6 F 09/27/18 15:23 Pulse 71 09/27/18 16:12 Resp 20 09/27/18 15:23 BP 149/86 09/27/18 15:23 Pulse Ox 98 09/27/18 16:12 - Labs Result Diagrams: 09/27/18 15:30 09/27/18 15:30 Labs: Laboratory Results - last 24 hr 09/27/18 09/27/18 09/27/18 15:14 15:30 15:30 WBC 7.4 RBC 4.44 Hgb 12.5 Hct 36.5 MCV 82.1 MCH 28.1 MCHC 34.2 RDW 14.3 Plt Count 212 MPV 9.1 Neut % (Auto) 33.9 L Lymph % (Auto) 51.5 H [place] % (Auto) 12.6 H Eos % (Auto) 1.3 Baso % (Auto) 0.7 Neut # (Auto) 2.5 Lymph # (Auto) 3.8 [place] # (Auto) 0.9 H Eos # (Auto) 0.1 Baso # (Auto) 0.1 PT 12.1 INR 1.1 APTT 33.9 POC Glucose (mg/dL) 88 Assessment & Plan - Assessment and Plan (Free Text) Assessment: 58 yo female patient with PMH of HTN admitted due to L side numbness r/o CVA vs TIA. Code stroke called. Plan: L sided numbness r/o CVA vs TIA. - code stroke - Head CT negative for acute infarct - ASA 325 once - NPO pending swallow eval - IV fluids - c/ home medication - Neuro consulted, recs appreciated - admit to tele - neurochecks - f/u labs results h/o HTN - chronic - on the high side - c/ home meds - monitor VS DVT ppx - scd for now Case discussed with Dr Chintan Day PGY 2
[2018-09-27] MEDS: Sodium Chloride 0.9% 1,000 ML IV SCH (16:32)
[2018-09-27 16:35] LABS: LDL CHOLESTEROL 104 mg/dL (0-129)
[2018-09-28 06:03] LABS: BASO # 0.1 K/uL (0.0-0.2); EOS # 0.1 K/uL (0.0-0.7); EOS % 1.7 % (0.0-4.0); LYMPH # 2.9 K/uL (1.0-4.3); LYMPH % 52.1 % (20.0-40.0); MEAN CELL VOLUME 81.3 fl (81.0-99.0); MEAN CORPUSCULAR HEMOGLOBIN 28.2 pg (27.0-31.0); MEAN CORPUSCULAR HGB CONC 34.7 g/dL (33.0-37.0); MEAN PLATELET VOLUME 8.8 fl (7.2-11.7); MONO # 0.7 K/uL (0.0-0.8); MONO % 12.9 % (0.0-10.0); NEUT # 1.8 K/uL (1.8-7.0); NEUT % 32.3 % (50.0-75.0); NRBC % 0.1 % (0.0-0.0); RBC 4.27 Mil/uL (3.80-5.20); RED CELL DISTRIBUTION WIDTH 14.1 % (11.5-14.5); WHITE BLOOD COUNT 5.5 K/uL (4.8-10.8)
[2018-09-28 06:19] LABS: ALB/GLOB RATIO 1.2 (1.0-2.1); ALT/SGPT 23 U/L (9-52); AST/SGOT 25 U/L (14-36); BLOOD UREA NITROGEN 11 mg/dl (7-17); CALCIUM 9.1 mg/dL (8.4-10.2); GFR NON-AFRICAN AMERICAN > 60
--- NOTE | 2018-09-28 08:16 | CARD ---
APPROVED REPORT Date of service: 09/28/2018 EKG Measurement Heart [id number] <Conclusion> Normal sinus rhythm Left ventricular hypertrophy with repolarization abnormality Abnormal ECG
--- NOTE | 2018-09-28 08:27 | CARD ---
APPROVED REPORT Date of service: 09/27/2018 EKG Measurement Heart [id number] <Conclusion> Normal sinus rhythm Left ventricular hypertrophy with repolarization abnormality Abnormal ECG
--- NOTE | 2018-09-28 11:58 | CP.PCM.CON ---
History of Present Illness - History of Present Illness History of Present Illness: Neurology Consultation Note: Consult requested by Dr. Woodson Mrs. Inocente Torre is a 58-year-old woman with a past medical history of hypertension, who developed left side weakness yesterday that resolved spontaneously. She says that she started having numbness of the left arm the night before. Today, the patient is at baseline and has no deficits. She had no complaints today. Non-contrast CT scan of the head did not show any acute findings. MRA of the brain did not show any significant stenosis or occlusion. Review of Systems - Constitutional Constitutional: As Per HPI - EENT Eyes: absent: As Per HPI, Blind Spots, Blurred Vision, Change in Vision, Decreased Night Vision, Diplopia, Discharge, Dry Eye, Exophthalmos, Floaters, Irritation, Itchy Eyes, Loss of Peripheral Vision, Pain, Photophobia, Requires C orrective Lenses, Sees Flashes, Spots in Vision, Tunnel Vision, Other Visual Disturbances, Loss of Vision, Other Ears: absent: As Per HPI, Decreased Hearing, Ear Discharge, Ear Pain, Tinnitus, Abnormal Hearing, Disequilibrium, Dizziness, Other Nose/Mouth/Throat: absent: As Per HPI, Epistaxis, Nasal Congestion, Nasal Discharge, Nasal Obstruction, Nasal Trauma, Nose Pain, Post Nasal Drip, Sinus Pain, Sinus Pressure, Bleeding Gums, Change in Voice, Dental Pain, Dry Mouth, Dysphagia, Halitosis, Hoarsness, Lip Swelling, Mouth Lesions, Mouth Pain, Od ynophagia, Sore Throat, Throat Swelling, Tongue Swelling, Facial Pain, Neck Pain, Neck Mass, Other - Cardiovascular Cardiovascular: absent: As Per HPI, Acrocyanosis, Chest Pain, Chest Pain at Rest, Chest Pain with Activity, Claudication, Diaphoresis, Dyspnea, Dyspnea on Exertion, Edema, Irregular Heart Rhythm, Pain Radiating to Arm/Neck/Jaw, Leg Edema, Leg Ulcers, Lightheadedness, Orthopnea, Palpitations, Paroxysmal Nocturnal Dyspnea, Pedal Edema, Radiating Pain, Rapid Heart Rate, Slow Heart Rate, Syncope, Other - Respiratory Respiratory: absent: As Per HPI, Cough, Dyspnea, Hemoptysis, Dyspnea on Exertion, Wheezing, Snoring, Stridor, Pain on Inspiration, Chest Congestion, Excessive Mucous Production, Change in Mucous Color, Pain with Coughing, Other - Musculoskeletal Musculoskeletal: absent: As Per HPI, Abnormal Gait, Arthralgias, Atrophy, Back Pain, Deformity, Joint Swelling, Limited Range of Motion, Loss of Height, Muscle Cramps, Muscle Weakness, Myalgias, Neck Pain, Numbness, Radiating Pain into Limb, Stiffness, Tingling, Other - Integumentary Integumentary: absent: As Per HPI, Acne, Alopecia, Bleeding Lesions, Change in Hair, Change in Nails, Change in Pigmentation, Changing Lesions, Dry Skin, Erythema, Furuncle, Hirsutism, Lesions, New Lesions, Non-Healing Lesions, Photosensitivity, Pruritus, Rash, Skin Pain, Skin Ulcer, Sores, Striae, Swelling, Unusual Bruising, Wounds, Jaundice, Other - Neurological Neurological: As Per HPI - Psychiatric Psychiatric: absent: As Per HPI, Abnormal Sleep Pattern, Anhedonia, Anxiety, Auditory Hallucinations, Behavioral Changes, Change in Appetite, Change in Libido, Confusion, Depression, Difficulty Concentrating, Hallucinations, Homicidal Ideation, Hopelessness, Irritability, Memory Loss, Mood Swings, Panic Attacks, Paranoia, Suicidal Ideation, Visual Hallucinations, Tactile Hallucinations, Other - Endocrine Endocrine: absent: As Per HPI, Change in Body Appearance, Change in Libido, Cold Intolorance, Deepening of Voice, Excessive Sweating, Fatigue, Flushing, Heat Intolorance, Increase in Ring/Shoe/Hat Size, Palpitations, Polydipsia, Polyphagia, Polyuria, Other - Hematologic/Lymphatic Hematologic: absent: As Per HPI, Easy Bleeding, Easy Bruising, Lymphadenopathy, Other Past Patient History - Infectious Disease Hx of Infectious Diseases: None - Past Medical History & Family History Past Medical History?: Yes - Past Social History Smoking Status: Never Smoked - CARDIAC Hx Cardiac Disorders: Yes Hx Hypertension: Yes - PULMONARY Hx Respiratory Disorders: No - NEUROLOGICAL Hx Neurological Disorder: No - HEENT Hx HEENT Problems: No - RENAL Hx Chronic Kidney Disease: No - ENDOCRINE/METABOLIC Hx Endocrine Disorders: No - HEMATOLOGICAL/ONCOLOGICAL Hx Blood Disorders: No - INTEGUMENTARY Hx Dermatological Problems: No - MUSCULOSKELETAL/RHEUMATOLOGICAL Hx Musculoskeletal Disorders: No Hx Falls: No - GASTROINTESTINAL Hx Gastrointestinal Disorders: No - GENITOURINARY/GYNECOLOGICAL Hx Genitourinary Disorders: No - PSYCHIATRIC Hx Psychophysiologic Disorder: No Hx Substance Use: No - SURGICAL HISTORY Hx Surgeries: Yes Hx Tubal Ligation: Yes Other/Comment: OVARIAN CYSTECTOMY - ANESTHESIA Hx Anesthesia: Yes Hx Anesthesia Reactions: No Hx Malignant Hyperthermia: No Has any member of the family had a problem w/ anesthesia?: No Meds Allergies/Adverse Reactions: Allergies Allergy/AdvReac Type Severity Reaction Status Date / Time No Known Allergies Allergy Verified 02/07/18 15:41 - Medications Medications: Current Medications Aspirin (Ecotrin) 81 mg PO DAILY [facility] Last Admin: 09/28/18 10:30 Dose: 81 mg Atorvastatin Calcium (Lipitor) 40 mg PO DAILY [facility] Clopidogrel Bisulfate (Plavix) 300 mg PO ONCE ONE Stop: 09/28/18 11:56 Sodium Chloride (Sodium Chloride 0.9%) 1,000 mls @ 100 mls/hr IV .Q10H [facility] Last Admin: 09/27/18 16:32 Dose: 100 mls/hr Losartan Potassium (Cozaar) 50 mg PO DAILY [facility] Last Admin: 09/28/18 10:30 Dose: 50 mg Physical Exam - Constitutional Appears: Well - Head Exam Head Exam: ATRAUMATIC, NORMAL INSPECTION, NORMOCEPHALIC - Eye Exam Eye Exam: EOMI, Normal appearance, PERRL Pupil Exam: NORMAL ACCOMODATION, PERRL - ENT Exam ENT Exam: Mucous Membranes Moist, Normal Exam - Neck Exam Neck exam: Positive for: Normal Inspection - Respiratory Exam Respiratory Exam: Clear to Auscultation Bilateral, NORMAL BREATHING PATTERN - Cardiovascular Exam Cardiovascular Exam: REGULAR RHYTHM, +S1, +S2 - GI/Abdominal Exam GI & Abdominal Exam: Normal Bowel Sounds, Soft. absent: Tenderness - Extremities Exam Extremities exam: Positive for: normal inspection - Back Exam Back exam: NORMAL INSPECTION - Neurological Exam Neurological exam: Alert, CN II-XII Intact, Normal Gait, Oriented x3, Reflexes Normal Additional comments: NIHSS is 0 - Psychiatric Exam Psychiatric exam: Normal Affect, Normal Mood - Skin Skin Exam: Dry, Intact, Normal Color, Warm Results - Vital Signs Recent Vital Signs: Last Vital Signs Temp 98.1 F 09/28/18 11:48 Pulse 64 09/28/18 11:48 Resp 18 09/28/18 11:48 BP 131/80 09/28/18 11:48 Pulse Ox 97 09/28/18 11:48 - Labs Result Diagrams: 09/28/18 04:45 09/28/18 04:45 Labs: Laboratory Results - last 24 hr 09/27/18 09/27/18 09/27/18 15:14 15:30 15:30 WBC 7.4 RBC 4.44 Hgb 12.5 Hct 36.5 MCV 82.1 MCH 28.1 MCHC 34.2 RDW 14.3 Plt Count 212 MPV 9.1 Neut % (Auto) 33.9 L Lymph % (Auto) 51.5 H [place] % (Auto) 12.6 H Eos % (Auto) 1.3 Baso % (Auto) 0.7 Neut # (Auto) 2.5 Lymph # (Auto) 3.8 [place] # (Auto) 0.9 H Eos # (Auto) 0.1 Baso # (Auto) 0.1 PT INR APTT Sodium 140 Potassium 4.1 Chloride 101 Carbon Dioxide 28 Anion Gap 15 BUN 13 Creatinine 0.6 L Est GFR ( Amer) > 60 Est GFR (Non-Af Amer) > 60 POC Glucose (mg/dL) 88 Random Glucose 89 Calcium 9.8 Total Bilirubin 0.2 AST 27 ALT 27 Alkaline Phosphatase 85 Troponin I < 0.0120 Total Protein 8.5 H Albumin 4.7 Globulin 3.8 Albumin/Globulin Ratio 1.2 Triglycerides 72 Cholesterol 185 LDL Cholesterol Direct 104 HDL Cholesterol 49 Blood Type Blood Type Confirm Antibody Screen BBK History Checked 09/27/18 09/27/18 09/28/18 15:30 15:30 04:45 WBC RBC Hgb Hct MCV MCH MCHC RDW Plt Count MPV Neut % (Auto) Lymph % (Auto) [place] % (Auto) Eos % (Auto) Baso % (Auto) Neut # (Auto) Lymph # (Auto) [place] # (Auto) Eos # (Auto) Baso # (Auto) PT 12.1 INR 1.1 APTT 33.9 Sodium Potassium Chloride Carbon Dioxide Anion Gap BUN Creatinine Est GFR ( Amer) Est GFR (Non-Af Amer) POC Glucose (mg/dL) Random Glucose Calcium Total Bilirubin AST ALT Alkaline Phosphatase Troponin I Total Protein Albumin Globulin Albumin/Globulin Ratio Triglycerides Cholesterol LDL Cholesterol Direct HDL Cholesterol Blood Type O POSITIVE Blood Type Confirm O POSITIVE Antibody Screen Negative BBK History Checked No verified bt 09/28/18 09/28/18 04:45 04:45 WBC 5.5 RBC 4.27 Hgb 12.0 Hct 34.7 MCV 81.3 MCH 28.2 MCHC 34.7 RDW 14.1 Plt Count 198 MPV 8.8 Neut % (Auto) 32.3 L Lymph % (Auto) 52.1 H [place] % (Auto) 12.9 H Eos % (Auto) 1.7 Baso % (Auto) 1.0 Neut # (Auto) 1.8 Lymph # (Auto) 2.9 [place] # (Auto) 0.7 Eos # (Auto) 0.1 Baso # (Auto) 0.1 PT INR APTT Sodium 139 Potassium 4.3 Chloride 103 Carbon Dioxide 29 Anion Gap 11 BUN 11 Creatinine 0.7 Est GFR ( Amer) > 60 Est GFR (Non-Af Amer) > 60 POC Glucose (mg/dL) Random Glucose 92 Calcium 9.1 Total Bilirubin 0.4 AST 25 ALT 23 Alkaline Phosphatase 77 Troponin I Total Protein 7.3 Albumin 4.0 Globulin 3.3 Albumin/Globulin Ratio 1.2 Triglycerides Cholesterol LDL Cholesterol Direct HDL Cholesterol Blood Type Blood Type Confirm Antibody Screen BBK History Checked Assessment & Plan (1) Transient ischemic attack Assessment and Plan: Symptoms are resolved, NIHSS is 0. I recommend the followin. Telemetry 2. MRI brain without contrast 3. Echocardiogram 4. Lipitor 40 mg daily for LDL less than 70 5. Load with Plavix 300 mg now, and continue Plavix 75 mg daily along with aspirin 81 mg daily for 21 days per the CHANCE trial, then continue only Plavix 75 mg daily monotherapy indefinitely 6. Fluids with NS at 100 mL/hr 7. May normalize BP 8. PT/OT eval and treatment if needed 9. Case management consult Thank you for this consultation. Status: Acute
--- NOTE | 2018-09-28 13:03 | CP.PCM.PN ---
Subjective - Date & Time of Evaluation Date of Evaluation: 09/28/18 Time of Evaluation: 09:31 - Subjective Subjective: Patient seen and examined this morning at bedside feeling much better, sx resolved on its own, no acute overnight events. VSS Objective - Vital Signs/Intake and Output Vital Signs (last 24 hours): Temp Pulse Resp BP Pulse Ox 98.1 F 64 18 131/80 97 09/28/18 11:48 09/28/18 11:48 09/28/18 11:48 09/28/18 11:48 09/28/18 11:48 - Medications Medications: Current Medications Aspirin (Ecotrin) 81 mg PO DAILY [facility] Last Admin: 09/28/18 10:30 Dose: 81 mg Atorvastatin Calcium (Lipitor) 40 mg PO DAILY [facility] Last Admin: 09/28/18 12:52 Dose: 40 mg Clopidogrel Bisulfate (Plavix) 75 mg PO DAILY [facility] Sodium Chloride (Sodium Chloride 0.9%) 1,000 mls @ 100 mls/hr IV .Q10H [facility] Last Admin: 09/27/18 16:32 Dose: 100 mls/hr Losartan Potassium (Cozaar) 50 mg PO DAILY [facility] Last Admin: 09/28/18 10:30 Dose: 50 mg - Labs Labs: 09/28/18 04:45 09/28/18 04:45 PT 12.1 Seconds (9.8-13.1) 09/27/18 15:30 INR 1.1 09/27/18 15:30 APTT 33.9 Seconds (25.6-37.1) 09/27/18 15:30 - Constitutional Appears: No Acute Distress - Head Exam Head Exam: NORMAL INSPECTION - Eye Exam Eye Exam: EOMI, PERRL - Respiratory Exam Respiratory Exam: Clear to Ausculation Bilateral, NORMAL BREATHING PATTERN - Cardiovascular Exam Cardiovascular Exam: REGULAR RHYTHM, +S1, +S2. absent: Tachycardia - GI/Abdominal Exam GI & Abdominal Exam: Soft, Normal Bowel Sounds. absent: Tenderness - Extremities Exam Extremities Exam: absent: Calf Tenderness, Pedal Edema - Neurological Exam Neurological Exam: Alert, Awake, CN II-XII Intact, Oriented x3 - Skin Skin Exam: Dry, Warm Assessment and Plan - Assessment and Plan (Free Text) Assessment: 58 yo female patient with PMH of HTN admitted due to L side numbness r/o CVA vs TIA. Code stroke called. Plan: L sided numbness/TIA. - sx resolved - Head CT negative for acute infarct - MRA negative, pending MRI - Neuro consulted, recs appreciated - regular diet - c/ home medication - f/u echo and carotids duplex results - neurochecks - continue BP meds and ASA - PT/OT h/o HTN - chronic - on the high side - c/ home meds - monitor VS DVT ppx - scd for now Case discussed with Dr Chintan Day PGY 2
--- NOTE | 2018-09-28 16:08 | US ---
Date of service: 09/27/2018 PROCEDURE: Bilateral duplex Doppler carotid arterial ultrasound examination HISTORY: code stroke COMPARISON: Not available TECHNIQUE: Ultrasound examination of the carotid arteries was performed utilizing a linear array color Doppler transducer. FINDINGS: Right carotid artery: There is no significant atheromatous plaque. Minimal CCA intimal thickening. Peak systolic velocity measurements are as follows: CCA: 64.7 centimeters/second ICA: 64.7 ICA/CCA peak systolic velocity ratio: 1.0 Antegrade flow demonstrated in the right vertebral artery. Left carotid artery: No significant atheromatous plaque. Minimal intimal thickening in the distal common carotid artery. Peak systolic velocity measurements are as follows: CCA: 66.9 centimeters/second ICA: 67.7 ICA/CCA peak systolic velocity ratio: 1.0 Antegrade flow demonstrated in the left vertebral artery. IMPRESSION: No evidence of hemodynamically significant carotid arterial stenosis bilaterally (less than 15 percent by NASCET criteria). Antegrade flow in both vertebral arteries.
[2018-09-28] MEDS: Sodium Chloride 0.9% 1,000 ML IV SCH (17:18)
--- NOTE | 2018-09-28 19:59 | CARD ---
APPROVED REPORT Date of service: 09/28/2018 EXAM: Two-dimensional and M-mode echocardiogram with Doppler and color Doppler. Other Information Quality : GoodRhythm : NSR INDICATION CVA/TIA 2D DIMENSIONS IVSd1.26 (0.7-1.1cm)LVDd4.10 (3.9-5.9cm) LVOT Diameter2.16 (1.8-2.4cm)PWd1.21 (0.7-1.1cm) IVSs1.51 (0.8-1.2cm)LVDs2.47 (2.5-4.0cm) FS (%) 39.7 %PWs1.34 (0.8-1.2cm) M-Mode DIMENSIONS Left Atrium (MM)4.30 (2.5-4.0cm)IVSd1.13 (0.7-1.1cm) Aortic Root3.09 (2.2-3.7cm)LVDd5.21 (4.0-5.6cm) Aortic Cusp Exc.2.07 (1.5-2.0cm)PWd1.08 (0.7-1.1cm) IVSs1.38 cmFS (%) 33 % LVDs3.47 (2.0-3.8cm)PWs1.82 cm Aortic Valve AoV Peak Qcxwpjac136.6cm/sAoV VTI20.1cmAO Peak GR.5mmHg LVOT Peak Grprzckh02.7cm/sLVOT VTI13.57cmAO Mean GR.3mmHg NEFTALY (VMAX)1.10wb1TNA (VTI)1.29cm2 Mitral Valve MV E Vzodsxow75.4cm/sMV DECEL JIIO270stNL A Qyobmghq29.4cm/s MV XVV54plJ/A ratio0.7MVA (PHT)3.08cm2 TDI Lateral E' Peak V9.61cm/sMedial E' Peak V5.30cm/sE/Lateral E'4.8 E/Medial E'8.8 Tricuspid Valve TR Peak Butvkicb483sk/sRAP ADZZOCJW66zlZlNY Peak Gr.17mmHg [id number] LEFT VENTRICLE The left ventricle is normal size. There is mild concentric left ventricular hypertrophy. The left ventricular systolic function is normal. The estimated ejection fraction is 55-60% No regional wall motion abnormalities noted.. Transmitral Doppler flow pattern is Grade I-abnormal relaxation pattern. No left ventricle thrombus noted on this study. There is no ventricular septal defect visualized. There is no left ventricular aneurysm. There is no mass noted in the left ventricle. RIGHT VENTRICLE The right ventricle is normal size. There is normal right ventricular wall thickness. The right ventricular systolic function is normal. ATRIA The left atrium is mildly dilated. The right atrium size is normal. The interatrial septum is intact with no evidence for an atrial septal defect. AORTIC VALVE The aortic valve is normal in structure. No aortic regurgitation is present. There is no aortic valvular stenosis. There is no aortic valvular vegetation. MITRAL VALVE The mitral valve is normal in structure. There is no evidence of mitral valve prolapse. There is no mitral valve stenosis. There is trace mitral valve regurgitation noted. TRICUSPID VALVE The tricuspid valve is normal in structure. There is mild tricuspid valve regurgitation noted. RVSP is calculated at 23 mm Hg. There is no tricuspid valve prolapse or vegetation. There is no tricuspid valve stenosis. PULMONIC VALVE The pulmonary valve is normal in structure. There is trace pulmonic valvular regurgitation. There is no pulmonic valvular stenosis. GREAT VESSELS The aortic root is normal in size. The ascending aorta is normal in size. The pulmonary artery is normal. The IVC is normal in size and collapses >50% with inspiration. PERICARDIAL EFFUSION There is no pericardial effusion. There is no pleural effusion. <Conclusion> The estimated ejection fraction is 55-60% Transmitral Doppler flow pattern is Grade I-abnormal relaxation pattern. The left atrium is mildly dilated. The interatrial septum is intact with no evidence for an atrial septal defect. There is trace mitral valve regurgitation noted. There is mild tricuspid valve regurgitation noted. RVSP is calculated at 23 mm Hg.
[2018-09-29 00:45] VITALS: RESP 18
[2018-09-29 12:07] VITALS: BP 132/76; TEMP 98.2
[2018-09-29 12:56] VITALS: PULSE 71; O2SAT 98
--- NOTE | 2018-09-29 12:59 | CP.PCM.DIS ---
Provider - Provider Date of Admission: 09/27/18 15:48 Attending physician: Matty Woodson MD Consults: 09/27/18 15:14 Stroke Team Consult Stat Comment: Consulting Provider: Neurohospitalist Consulting Physician: NEUROHOSP Neurohospitalist for Consult: Raza Esparza Neurohospitalist for Consult: Christina Riojas Reason for Consult: L sided numbness/ weakness x18hr NIHSS 3 Time Spent in preparation of Discharge (in minutes): 37 Diagnosis - Discharge Diagnosis (1) Transient ischemic attack Status: Acute (2) Hypertension Status: Acute Hospital Course - Lab Results Lab Results: Most Recent Lab Values WBC 5.5 K/uL (4.8-10.8) 09/28/18 04:45 RBC 4.27 Mil/uL (3.80-5.20) 09/28/18 04:45 Hgb 12.0 g/dL (12.0-16.0) 09/28/18 04:45 Hct 34.7 % (34.0-47.0) 09/28/18 04:45 MCV 81.3 fl (81.0-99.0) 09/28/18 04:45 MCH 28.2 pg (27.0-31.0) 09/28/18 04:45 MCHC 34.7 g/dL (33.0-37.0) 09/28/18 04:45 RDW 14.1 % (11.5-14.5) 09/28/18 04:45 Plt Count 198 K/uL (130-400) 09/28/18 04:45 MPV 8.8 fl (7.2-11.7) 09/28/18 04:45 Neut % (Auto) 32.3 % (50.0-75.0) L 09/28/18 04:45 Lymph % (Auto) 52.1 % (20.0-40.0) H 09/28/18 04:45 [place] % (Auto) 12.9 % (0.0-10.0) H 09/28/18 04:45 Eos % (Auto) 1.7 % (0.0-4.0) 09/28/18 04:45 Baso % (Auto) 1.0 % (0.0-2.0) 09/28/18 04:45 Neut # (Auto) 1.8 K/uL (1.8-7.0) 09/28/18 04:45 Lymph # (Auto) 2.9 K/uL (1.0-4.3) 09/28/18 04:45 [place] # (Auto) 0.7 K/uL (0.0-0.8) 09/28/18 04:45 Eos # (Auto) 0.1 K/uL (0.0-0.7) 09/28/18 04:45 Baso # (Auto) 0.1 K/uL (0.0-0.2) 09/28/18 04:45 PT 12.1 Seconds (9.8-13.1) 09/27/18 15:30 INR 1.1 09/27/18 15:30 APTT 33.9 Seconds (25.6-37.1) 09/27/18 15:30 Sodium 139 mmol/l (132-148) 09/28/18 04:45 Potassium 4.3 MMOL/L (3.6-5.0) 09/28/18 04:45 Chloride 103 mmol/L (98-107) 09/28/18 04:45 Carbon Dioxide 29 mmol/L (22-30) 09/28/18 04:45 Anion Gap 11 (10-20) 09/28/18 04:45 BUN 11 mg/dl (7-17) 09/28/18 04:45 Creatinine 0.7 mg/dl (0.7-1.2) 09/28/18 04:45 Est GFR ( Amer) > 60 09/28/18 04:45 Est GFR (Non-Af Amer) > 60 09/28/18 04:45 POC Glucose (mg/dL) 88 mg/dL (65-110) 09/27/18 15:14 Random Glucose 92 mg/dL (65-105) 09/28/18 04:45 Hemoglobin A1c 5.6 % (4.2-6.5) 09/27/18 15:48 Calcium 9.1 mg/dL (8.4-10.2) 09/28/18 04:45 Total Bilirubin 0.4 mg/dl (0.2-1.3) 09/28/18 04:45 AST 25 U/L (14-36) 09/28/18 04:45 ALT 23 U/L (9-52) 09/28/18 04:45 Alkaline Phosphatase 77 U/L (38-126) 09/28/18 04:45 Troponin I < 0.0120 ng/mL (0.00-0.120) 09/27/18 15:30 Total Protein 7.3 G/DL (6.3-8.2) 09/28/18 04:45 Albumin 4.0 g/dL (3.5-5.0) 09/28/18 04:45 Globulin 3.3 gm/dL (2.2-3.9) 09/28/18 04:45 Albumin/Globulin Ratio 1.2 (1.0-2.1) 09/28/18 04:45 Triglycerides 72 mg/DL (0-149) 09/27/18 15:30 Cholesterol 185 mg/dL (0-199) 09/27/18 15:30 LDL Cholesterol Direct 104 mg/dL (0-129) 09/27/18 15:30 HDL Cholesterol 49 MG/DL (30-70) 09/27/18 15:30 Blood Type O POSITIVE 09/27/18 15:30 Blood Type Confirm O POSITIVE 09/28/18 04:45 Antibody Screen Negative 09/27/18 15:30 BBK History Checked No verified bt 09/27/18 15:30 - Hospital Course Hospital Course: 58 yo female patient with PMH of HTN admitted due to L side numbness r/o CVA vs TIA. Code stroke called. Patient sx improved less than 24 hrs. NIHSS is 0. Neurology consulted. Head CT negative for acute infarct. Brain MRI/MRA negative for CVA. Echo LVEF 55-60%, grade I abnormal relaxation. Carotid US wnl. Patient was started on Plavix 75 mg along with ASA 81 daily for 21 days per CHANCE trial and instructed then to stop ASA and continue Plavix indefinitely. Also started on Lipitor 40 mg daily. Continue BP medications. Patient asymptomatic and stable at discharge time. Instructed to f/u with PCP in 2-3 days. Discharge Exam - Head Exam Head Exam: NORMAL INSPECTION - Eye Exam Eye Exam: EOMI, PERRL - Respiratory Exam Respiratory Exam: Clear to PA & Lateral, NORMAL BREATHING PATTERN - Cardiovascular Exam Cardiovascular Exam: REGULAR RHYTHM, +S1, +S2. absent: Tachycardia - GI/Abdominal Exam GI & Abdominal Exam: Normal Bowel Sounds, Soft. absent: Tenderness - Neurological Exam Neurological exam: Alert, CN II-XII Intact, Oriented x3, Reflexes Normal - Skin Skin Exam: Dry, Intact, Warm Discharge Plan - Discharge Medications Prescriptions: Atorvastatin [Lipitor] 40 mg PO DAILY 30 Days #30 tab Clopidogrel [Plavix] 75 mg PO DAILY 30 Days #30 tab - Follow Up Plan Condition: STABLE Disposition: HOME/ ROUTINE Instructions: Stroke (DC), Transient Ischemic Attack (DC) Additional Instructions: Continue Plavix 75 mg 1 tab daily along with ASA 81mg for 21 days, then continue only Plavix 75 mg daily monotherapy indefinitely. Continue Lipitor 40 mg daily continue BP medication F/u with Dr Woodson next week Return to ED if worsening or new symptoms. Referrals: [facility] [Outside] Matty Woodson MD [Staff Provider] -
--- NOTE | 2018-09-29 14:38 | MRI ---
Date of service: 09/28/2018 PROCEDURE: MRI BRAIN WITHOUT CONTRAST HISTORY: code stroke COMPARISON: None available. TECHNIQUE: Multiplanar, multisequence MR images of the brain were obtained without intravenous contrast enhancement. FINDINGS: HEMORRHAGE: None DWI: No evidence of an acute or early subacute infarction. BRAIN PARENCHYMA: No mass effect or edema. Multifocal white matter signal abnormality, suggestive of chronic microvascular ischemic disease. VENTRICLES: Unremarkable. No hydrocephalus. CRANIUM: Unremarkable. ORBITS: Grossly unremarkable. PARANASAL SINUSES/MASTOIDS: Clear VASCULAR SYSTEM: Skull base flow voids intact. OTHER FINDINGS: None. IMPRESSION: Multifocal white matter signal abnormality, suggestive of chronic microvascular ischemic disease.
--- NOTE | 2018-09-29 14:51 | MRI ---
Date of service: 09/28/2018 PROCEDURE: Magnetic Resonance Angiography Brain HISTORY: code stroke COMPARISON: None available. TECHNIQUE: 3D time of flight MR angiography of the intracranial arteries was performed. Rotating maximum intensity projection images were generated. FINDINGS: INTERNAL CAROTID ARTERIES: Unremarkable. The skull base, petrous, cavernous and supraclinoid segments are bilaterally widely patient. ANTERIOR CEREBRAL ARTERIES: Unremarkable. A1 and A2 segments are widely patent. Smaller distal branches unremarkable, as visualized. MIDDLE CEREBRAL ARTERIES: Unremarkable. M1 and M2 segments are widely patent. Perisylvian branches grossly symmetric. POSTERIOR CIRCULATION: Basilar Artery: Unremarkable. Distal Vertebral Arteries: Unremarkable. Posterior Cerebral Arteries: Unremarkable. Posterior Inferior Cerebellar Arteries: Unremarkable. ANEURYSM/ VASCULAR MALFORMATIONS: None. OTHER FINDINGS: None. IMPRESSION: Unremarkable MR angiography of the brain.
== END 2018-09-29 15:10 | disposition home or self-care (01) ==
LOC: H.ER 14:57 → H.ERHOLD 15:48 → H.TEL 22:45
PROVIDERS: ADMIT Family Medicine; ATTEND Family Medicine
DX: G45.9 Transient cerebral ischemic attack, unspecified (principal); R29.704 NIHSS score 4; I10 Essential (primary) hypertension; J45.909 Unspecified asthma, uncomplicated; Z79.02 Long term (current) use of antithrombotics/antiplatelets; Z79.82 Long term (current) use of aspirin; Z79.899 Other long term (current) drug therapy; Z82.3 Family history of stroke; Z98.51 Tubal ligation status
CPT/HCPCS: 36415; 70450; 70544; 70551; 71045; 80053; 80061; 82948; 83036; 84484; 85025; 85610; 85730; 86850; 86900; 93005; 93306; 93880; 97161; 99285; G0378; G8978; G8979; G8980; J7030